=== PATIENT | male | born 1975 | race Caucasian/White ===

== ENCOUNTER 2020-02-27 21:33 | Emergency (ER) | payer OTHER ==
[~2020-02-27] VITALS: Ht 180.3 cm; Wt 84.5 kg
[2020-02-27 22:06] LABS: ABSOLUTE NEUTROPHILS 3.7 thou/uL (1.4-8.2); BASOPHILS 0.7 % (0.0-2.0); EOSINOPHILS 7.9 % (0.0-3.0); HEMATOCRIT 46.9 % (42.0-52.0); HEMOGLOBIN 16.3 gm/dL (14.0-18.0); LYMPHOCYTES 27.3 % (24.0-44.0); MCH 32.5 pg (26.0-34.0); MCHC 34.8 g/dL (28.0-37.0); MCV 93.2 fL (80.0-100.0); MONOCYTES 9.5 % (1.0-8.0); PLATELET COUNT 267 thou/uL (150-400); POLYS 54.6 % (36.0-66.0); RBC 5.03 mil/uL (4.50-6.00); RDW 12.8 % (10.5-14.5); WBC 6.7 thou/uL (4.0-11.0)
[2020-02-27 22:14] LABS: ANION GAP 5 mmol/L (7-16); BUN 15 mg/dL (7-18); CALCIUM 8.6 mg/dL (8.5-10.1); CHLORIDE 106 mmol/L (98-107); CO2 32 mmol/L (21-32); CREATININE 1.2 mg/dL (0.7-1.3); GLUCOSE 142 mg/dL (74-106); POTASSIUM 4.2 mmol/L (3.5-5.1); SODIUM 143 mmol/L (136-145)
[2020-02-27 22:24] LABS: ALBUMIN 4.1 g/dL (3.4-5.0); SGPT 59 U/L (30-65); TOTAL BILIRUBIN 0.4 mg/dL (0.2-1.0); TOTAL PROTEIN 7.4 g/dL (6.4-8.2); TROPONIN-I <0.06 ng/mL (<0.06)
[2020-02-27 22:25] LABS: SGOT 29 U/L (15-37)
[2020-02-28 02:50] VITALS: BP 104/48
--- NOTE | 2020-02-28 08:02 | EKG ---
[facility] [place] [address] ELECTROCARDIOGRAM REPORT Name: HALEIGH STALLINGS Quan [facility] Room #: [facility]P [id number] Admission: 02/27/20 Attend Phys: Discharge: 02/28/20 Date of : 79 Report #: [id number] THIS REPORT FOR: cc: MICHEL Agudelo family physician/PCP MICHEL - Jammie family physician/PCP Daniel Cardoso MD [facility] THIS REPORT FOR: //name// [facility] ED Test Date: 2020-02-27 Test Time: 21:41:47 Pat Name: HALEIGH STALLINGS Department: Room: Gender: Process [employer] Engineering Technologist: : 1975 Requested By: Gold Cottrell Order Number: [id number] MD: Daniel Cardoso Measurements Intervals [place] Rate: 82 P: 67 WA: 147 QRS: 67 QRSD: 114 T: 47 QT: 394 QTc: 461 Interpretive Statements Sinus rhythm Right ventricular conduction delay No previous ECG available for comparison Electronically Signed On 02-28-2020 8:02:37 CDT by Daniel Cardoso [email or web address] <ELECTRONICALLY SIGNED> By: Daniel Cardoso MD, [facility] 02/28/20 0802 40 40 Daniel Cardoso MD, [facility] /EPI
== END 2020-02-28 02:53 | disposition home or self-care (01) ==
LOC: ER 21:33
PROVIDERS: Emergency Medicine
DX: R07.9 Chest pain, unspecified (principal)